=== PATIENT | female | born 1975 | race Caucasian/White ===

== ENCOUNTER → 2017-08-14 09:42 | Outpatient (CLI) | payer OTHER, SELFPAY ==
--- NOTE | 2017-08-14 09:43 | DI.US.S_ITS ---
PROCEDURE: US THYROID INDICATIONS: hx of thyroid cysts TECHNIQUE: Real-time scanning was performed of the thyroid gland, with image documentation. COMPARISON: [facility], US, ASPIRATION CYST, 12/17/2012, 15:03. [facility], US, ASPIRATION CYST, 11/28/2012, 14:53. [facility], US, THYROID, 11/25/2012, 14:41. FINDINGS: Right: Thyroid lobe measures 5.2 x 1.5 x 1.8 cm, and is homogeneous in echotexture. Left: Thyroid lobe measures 3.4 x 1.0 x 0.7 cm, and is homogenous in echotexture. Isthmus: 2.0 mm thick. Nodule number: 1 Location: Right mid Size: 1.2 x 0.6 x 0.7 cm. Composition: Predominantly solid Echogenicity: Hypoechoic Shape: wider than tall. Margins: Smooth Echogenic foci: None Total points: 4 ACR TI-RADS category: Moderately suspicious Nodule number: 2 Location: Right inferior Size: measuring 1.7 x 1.2 x 3.5 cm Composition: Predominantly solid Echogenicity: Hypoechoic Shape: wider than tall. Margins: Smooth Echogenic foci: Internal echogenic punctate foci. Total points: 7 ACR TI-RADS category: Highly suspicious IMPRESSION: Highly suspicious right inferior solid thyroid nodule based on TI RADS characterization. Sonographically directed fine needle aspiration is recommended. ACR TI-RADS definitions and recommendations: TI-RADS 1 (benign): 0 points. FNA not needed. TI-RADS 2 (not suspicious): 2 points. FNA not needed. TI-RADS 3 (mildly suspicious): 3 points. * FNA if 2.5 cm or larger, follow up if 1.5 cm or larger (at 1, 3, and 5 years). TI-RADS 4 (moderately suspicious): 4-6 points. * FNA if 1.5 cm or larger, follow up if 1 cm or larger (at 1, 2, 3, and 5 years). TI-RADS 5 (highly suspicious): 7 points or more. * FNA if 1 cm or larger, follow up if 0.5 cm or larger (every year for 5 years). Dictated by: Luis Felipe CLEMENTS Interpreted: Edward Carr MD on 08/14/2017 at 11:33 Approved by: Edward Carr M.D. on 08/14/2017 at 16:43
== END ==
PROVIDERS: PCP Family Medicine; Visit Provider Family Medicine
DX: E04.1 Nontoxic single thyroid nodule (principal)
CPT/HCPCS: 76536

== ENCOUNTER → 2017-08-30 14:12 | Outpatient (CLI) | payer OTHER, SELFPAY ==
--- NOTE | 2017-08-30 | PATH_ITS ---
Note [facility] Accession Number: [id number] TESTS RESULT FLAG UNITS REF RANGE LAB Clinician Provided Cytology Information No. of containers..01 ThinPrep Vial No. of containers..10 Previously Prepared Cytology Slide RIGHT THYROID NODULE DIAGNOSIS: RIGHT THYROID NODULE INCONCLUSIVE. [place] CATEGORY III. ATYPIA OF UNDETERMINED SIGNIFICANCE. SOME FOLLICULAR CELLS SHOW CYTOLOGIC AND ARCHITECTURAL ATYPIA. A REPEAT ASPIRATE AFTER AN APPROPRIATE INTERVAL OF OBSERVATION MIGHT BE HELPFUL, IF CLINICALLY INDICATED. Pathologist ICD10: 02 R89.6 Ashleigh Rubio MD, Pathologist NPI- [id number] Joshua Haider, Chief Mate ([facility]) 01 30 CC, PINK, CLEAR RECEIVED: 5 ALCOHOL FIXED AND 5 QUICK STAINED SLIDES. /VDU FLAG LEGEND: L-Low Normal,H-High Normal,LL-Alert Low,HH-Alert High <-Panic Low,>-Panic High,A-Abnormal,AA-Critical Abnormal Performed at: 01 =Z [facility] [address], [place] [address] Junior Andrade MD, 02 [facility] [address] [place] [phone] Baldo Chaudhari MD, Performed at: 01 [facility] [address], [place], [place] [id number] MD Junior Andrade MD Phone: [phone]
--- NOTE | 2017-08-30 14:14 | DI.US.S_ITS ---
PROCEDURE: US FINE NEEDLE ASPIRATION INDICATIONS: 42 year-old female with new dominant inferior right thyroid nodule. TECHNIQUE: The indications, alternatives, benefits, risks, and complications of the procedure were explained to the patient. Written informed consent was obtained and placed in the chart. The thyroid region was examined sonographically and a site was chosen for ultrasound guided percutaneous sampling. The skin was prepared and draped in the usual fashion, and anesthetized with 1% lidocaine infiltrated from the skin down to the thyroid gland. Multiple passes were then performed, with contents emptied into an appropriate pathology specimen container. A bandage was applied to the area of access at completion of the study. COMPARISON: [facility], US, ASPIRATION CYST, 12/17/2012, 15:03. [facility], US, ASPIRATION CYST, 11/28/2012, 14:53. [facility], US, THYROID, 11/25/2012, 14:41. [facility], US, US THYROID, 08/14/2017, 9:53. FINDINGS: Location(s) of lesion(s) sampled: Right mid and inferior thyroid lobe. [place]: 25 gauge and 22 gauge hypodermic needles. Number of passes: 6 total. Medications: 1% lidocaine for local anaesthesia. Complications: None. IMPRESSION: Successful ultrasound-guided thyroid nodule fine needle aspiration, with cytology results pending. Please see chart below for management recommendations based on cytology results. [facility] ReportingRecommendationsNon-diagnostic* Repeat US-guided FNA, with on-site cytology evaluation if possible. * Repeated non-diagnostic nodules without high suspicion US features: close observation vs surgical consult. * Consider surgery if nodule has high suspicion US features, grows >20% in 2 dimensions on followup, or patient has clinical risk factors for malignancy. Benign* If nodule has high suspicion US features: repeat US and FNA within 12 months. * If nodule has low to intermediate suspicion US features: repeat US at 12-24 months. If nodule grows (20% increase in at least 2 dimensions, with minimal increase of 2 mm or >50% change in volume), or development of new suspicious US features, then repeat FNA or continue followup. * If nodule has very low suspicion US features: followup US at >24 months. Atypia of undetermined significance, follicular lesion of undetermined significanceRepeat FNA, molecular testing, followup US, or surgical consult.Follicular neoplasm, suspicious for follicular neoplasmSurgical consult; also consider molecular testing. Suspicious for malignancySurgical consult.MalignantSurgical consult. Dictated by: Ronan Hayward M.D. on 08/30/2017 at 15:56 Approved by: Ronan Hayward M.D. on 08/30/2017 at 15:58
== END ==
PROVIDERS: PCP Family Medicine; Visit Provider Family Medicine
DX: E04.1 Nontoxic single thyroid nodule (principal)
CPT/HCPCS: 10022; 76942

== ENCOUNTER → 2017-09-19 10:07 | Outpatient (CLI) | payer OTHER, SELFPAY ==
[2017-09-19 11:04] LABS: Erythrocyte Sedimentation Rate 21 MM/HR (0-20)
[2017-09-19 11:24] LABS: C-Reactive Protein Quant 1.5 mg/dL (<1.0)
[2017-09-19 11:27] LABS: Rheumatoid Factor < 8.6 IU/mL (<12.0)
== END ==
PROVIDERS: PCP Family Medicine; Visit Provider Physician Assistant
DX: M25.50 Pain in unspecified joint (principal)
CPT/HCPCS: 36415; 85651; 86140; 86430

== ENCOUNTER → 2017-10-04 15:51 | Outpatient (CLI) | payer OTHER, SELFPAY ==
[2017-10-04 18:33] LABS: Thyroid Stimulating Hormone 1.51 uIU/mL (0.47-4.68)
[2017-10-08 12:09] LABS: CCP Antibody (IgG) < 16 Units (< 20)
[2017-10-08 14:53] LABS: Thyroid Peroxidase Antibodies < 1 IU/mL (< 9)
[2017-10-09 19:37] LABS: ANA Pattern Homogeneous; ANA Screen, IFA Positive (Negative)
== END ==
PROVIDERS: PCP Family Medicine; Visit Provider Family Medicine
DX: E04.1 Nontoxic single thyroid nodule (principal); E05.90 Thyrotoxicosis, unspecified without thyrotoxic crisis or storm; M06.9 Rheumatoid arthritis, unspecified
CPT/HCPCS: 36415; 83516; 84439; 84443; 84481; 86038; 86376

== ENCOUNTER → 2017-11-01 10:36 | Outpatient (CLI) | payer OTHER, SELFPAY ==
[2017-11-06 07:55] LABS: ANA Screen NEGATIVE (Negative); DNA Antibody Crithidia IFA NEGATIVE (Negative); Rheumatoid Factor <14 IU/mL; Sjogren Antiboday SS-A <1.0 NEG AI (<1.0 NEGATIVE); Sjogren Antiboday SS-B <1.0 NEG AI (<1.0 NEGATIVE); Sm Antibody <1.0 NEG AI (<1.0 NEGATIVE); Sm/RNP Antibody <1.0 NEG AI (<1.0 NEGATIVE)
== END ==
PROVIDERS: PCP Family Medicine; Visit Provider Family Medicine
DX: R76.8 Other specified abnormal immunological findings in serum (principal); N64.4 Mastodynia
CPT/HCPCS: 36415; 86038; 86430

== ENCOUNTER → 2018-02-24 14:44 | Outpatient (CLI) | payer OTHER, SELFPAY ==
--- NOTE | 2018-02-24 | DI.US.S_ITS ---
PROCEDURE: US THYROID INDICATIONS: FOLLOW-UP NODULES TECHNIQUE: Real-time scanning was performed of the thyroid gland, with image documentation. COMPARISON: [facility], US, US FINE NEEDLE ASPIRATION, 08/30/2017, 14:40. [facility], US, US THYROID, 08/14/2017, 9:53. FINDINGS: Right: Thyroid lobe measures 5.4 x 1.6 x 2.0 cm, and is homogeneous in echotexture. Left: Thyroid lobe measures 3.1 x 1.0 x 0.8 cm, and is homogenous in echotexture. Isthmus: 2.8 mm thick. Nodule number: 1 Location: Right mid Size: Unchanged at 1.3 x 0.5 x 0.9 cm. Composition: Solid Echogenicity: Hypoechoic Shape: wider than tall. Margins: Smooth Echogenic foci: None Total points: 4 ACR TI-RADS category: Moderately suspicious Nodule number: 2 Location: Right inferior Size: Unchanged at 1.6 x 2.0 x 3.0 cm. Composition: Solid Echogenicity: Hypoechoic Shape: wider than tall. Margins: Smooth Echogenic foci: Internal echogenic punctate foci Total points: 7 ACR TI-RADS category: Highly suspicious IMPRESSION: Stable appearance of bilateral thyroid nodules compared to prior examination. Recommend correlation with pathology report from prior fine-needle aspiration dated 08/30/2017 and if indicated, repeat fine needle aspiration of the highly suspicious nodule could be performed. ACR TI-RADS definitions and recommendations: TI-RADS 1 (benign): 0 points. FNA not needed. TI-RADS 2 (not suspicious): 2 points. FNA not needed. TI-RADS 3 (mildly suspicious): 3 points. * FNA if 2.5 cm or larger, follow up if 1.5 cm or larger (at 1, 3, and 5 years). TI-RADS 4 (moderately suspicious): 4-6 points. * FNA if 1.5 cm or larger, follow up if 1 cm or larger (at 1, 2, 3, and 5 years). TI-RADS 5 (highly suspicious): 7 points or more. * FNA if 1 cm or larger, follow up if 0.5 cm or larger (every year for 5 years). Dictated by: Luis Felipe CLEMENTS Interpreted: Kirstei Christy MD on 02/24/2018 at 15:44 Approved by: Kirstie Christy MD, PhD on 02/24/2018 at 17:18
== END ==
PROVIDERS: PCP Family Medicine; Visit Provider Family Medicine
DX: E04.2 Nontoxic multinodular goiter (principal)
CPT/HCPCS: 76536

== ENCOUNTER → 2019-07-13 07:15 | Outpatient (CLI) | payer OTHER, SELFPAY ==
--- NOTE | 2019-07-13 07:17 | DI.US.S_ITS ---
PROCEDURE: US PELVIC COMPLETE INDICATIONS: PAIN TECHNIQUE: Real-time scanning was performed of the pelvic organs, with image documentation. Additional endovaginal scanning was necessary due to incomplete visualization of the adnexal and endometrial structures by transabdominal scanning. COMPARISON: None. FINDINGS: Transabdominal scanning: Limited scanning through the kidneys shows no hydronephrosis. No pathologic free abdominal or pelvic fluid. Endovaginal scanning: Uterus: Uterus is normal in size at 11.2 x 4.5 x 6.1 cm. The endometrium measures 16 mm in combined thickness. Ovaries: The right ovary measures 3.3 x 3.1 x 3.0 cm. There is a 2.7 cm simple right ovarian cyst. Left ovary measures 2.1 x 1.1 x 2.4 cm. No suspicious solid ovarian/adnexal mass lesions. Vascular waveforms are noted bilaterally. IMPRESSION: Pelvis without acute sonographic abnormalities. No suspicious ovarian/adnexal mass lesions. Dictated by: Josh Marroquin M.D. on 07/13/2019 at 9:03 Approved by: Josh Marroquin M.D. on 07/13/2019 at 9:05
== END ==
PROVIDERS: PCP Family Medicine; Referring Provider Physician Assistant; Visit Provider Physician Assistant
DX: R10.2 Pelvic and perineal pain (principal); N83.291 Other ovarian cyst, right side; Z87.42 Personal history of other diseases of the female genital tract
CPT/HCPCS: 76830; 76856

== ENCOUNTER → 2019-08-26 08:44 | Outpatient (CLI) | payer OTHER, SELFPAY ==
--- NOTE | 2019-08-26 | DI.MG.S_ITS ---
BILATERAL DIGITAL SCREENING MAMMOGRAM 3D/2D WITH CAD: 08/26/2019 CLINICAL: Routine screening. Comparison is made to exam dated: 07/31/2017 [facility]. The tissue of both breasts is heterogeneously dense. This may lower the sensitivity of mammography. Current study was also evaluated with a Computer Aided Detection (CAD) system. No significant masses, calcifications, or other findings are seen in either breast. There has been no significant interval change. IMPRESSION: NEGATIVE There is no mammographic evidence of malignancy. A 1 year screening mammogram is recommended. This exam was interpreted at Station ID: [id number]. NOTE: For mammograms, a report in lay terms will be sent to the patient. Approximately 15% of breast malignancies will not be visualized mammographically. In the management of a palpable breast mass, a negative mammogram must not discourage biopsy of a clinically suspicious lesion. Electronically Signed By: Shannan march/zeina:08/26/2019 09:45:33 letter sent: Normal Exam ACR BI-RADS Category 1: Negative [id number]
--- NOTE | 2019-08-26 08:45 | DI.US.S_ITS ---
PROCEDURE: US THYROID INDICATIONS: NODULES TECHNIQUE: Real-time scanning was performed of the thyroid gland, with image documentation. COMPARISON: [facility], US, US THYROID, 02/24/2018, 14:59. FINDINGS: Right: Thyroid lobe measures 6.0 x 1.6 x 2.2 cm, and is homogeneous in echotexture. Left: Thyroid lobe measures 2.9 x 1.2 x 0.6 cm, and is homogenous in echotexture. Isthmus: 2.0 mm thick. Nodule number: 1 Location: Right mid Size: Unchanged at 1.4 x 0.6 x 1.1 cm. Composition: Solid Echogenicity: Hypoechoic Shape: wider than tall. Margins: Smooth Echogenic foci: None Total points: 4 ACR TI-RADS category: Moderately suspicious Nodule number: 2 Location: Right inferior Size: Increased at 3.0 x 1.6 x 2.1 cm Composition: Solid Echogenicity: Hypoechoic Shape: wider than tall. Margins: Smooth Echogenic foci: None Total points: 4 ACR TI-RADS category: Moderately suspicious IMPRESSION: Increase in size of the right inferior 2 thyroid nodule which is moderately suspicious. Recommend sonographically directed fine needle aspiration for pathologic diagnosis. ACR TI-RADS definitions and recommendations: TI-RADS 1 (benign): 0 points. FNA not needed. TI-RADS 2 (not suspicious): 2 points. FNA not needed. TI-RADS 3 (mildly suspicious): 3 points. * FNA if 2.5 cm or larger, follow up if 1.5 cm or larger (at 1, 3, and 5 years). TI-RADS 4 (moderately suspicious): 4-6 points. * FNA if 1.5 cm or larger, follow up if 1 cm or larger (at 1, 2, 3, and 5 years). TI-RADS 5 (highly suspicious): 7 points or more. * FNA if 1 cm or larger, follow up if 0.5 cm or larger (every year for 5 years). Dictated by: Luis Felipe CLEMENTS Interpreted: Re De Luna MD on 08/26/2019 at 10:18 Approved by: Re De Luna M.D. on 08/28/2019 at 16:52
[2019-08-26 10:14] LABS: Add Manual Diff / Slide Review NO; Basophils Absolute Auto 0 /uL (0-100); Basophils Percent Auto 0.5 % (0-2); Eosinophils Absolute Auto 0 /uL (0-450); Eosinophils Percent Auto 0.6 % (2-4); Hematocrit 37.8 % (36-46); Lymphocytes Absolute Auto 1800 /uL (1100-4500); Lymphocytes Percent Auto 31.4 % (25-40); Mean Corpuscular HGB Conc 34.5 % (30-36); Monocytes Absolute Auto 700 /uL (0-900); Monocytes Percent Auto 11.6 % (3-14); Neutrophils Absolute Auto 3200 /uL (1500-7000); Neutrophils Percent Auto 55.9 % (50-75); Platelet Count 304 X10^3/uL (150-400); Red Blood Cell Count 4.35 X10^6/uL (4.0-5.2); White Blood Cell Count 5.7 X10^3/uL (4.5-11.0)
[2019-08-26 10:26] LABS: Alanine Aminotransferase 18 IU/L (<35); Albumin 4.3 g/dL (3.5-5.0); Albumin Globulin Ratio 1.3 (1.0-2.8); Alkaline Phosphatase 60 U/L (38-126); Aspartate Aminotransferase 19 IU/L (14-36); BUN Creatinine Ratio 17.6 (6-22); Bilirubin Total 0.4 mg/dL (0.2-1.3); Blood Urea Nitrogen 12 mg/dL (7-17); Calcium 9.6 mg/dL (8.4-10.2); Carbon Dioxide 26 mmol/L (22-32); Chloride 107 mmol/L (98-107); Cholesterol 150 mg/dL (140-199); Estimated Glomerular Filt Rate > 60.0 mL/min (>60); Globulin 3.2 g/dL (1.7-4.1); Glucose 88 mg/dL (70-100); HDL Cholesterol 70 mg/dL (40-60); HEMOLYSIS < 15 (0-50); LDL Cholesterol Calculated 65 mg/dL (<100); Sodium 139 mmol/L (137-145); Total Protein 7.5 g/dL (6.3-8.2); Triglycerides 76 mg/dL (35-150)
[2019-08-26 10:27] LABS: C-Reactive Protein Quant < 0.5 mg/dL (<1.0)
[2019-08-26 10:38] LABS: Erythrocyte Sedimentation Rate 13 MM/HR (0-20)
[2019-08-26 10:46] LABS: Free T3, Triiodothyronine Free 3.59 pg/mL (2.77-5.27); Free T4, Direct Thyroxine 0.96 ng/dL (0.78-2.19)
[2019-08-26 11:00] LABS: Thyroid Stimulating Hormone 0.05 uIU/mL (0.47-4.68)
[2019-08-27 08:17] LABS: Thyroid Peroxidase Antibodies 10 IU/mL (0-34)
[2019-08-27 17:09] LABS: Anti Thyroglobulin Antibody <1.0 IU/mL (0.0-0.9)
[2019-08-28 16:38] LABS: ANA Screen, IFA Positive (.)
[2019-08-31 14:08] LABS: Triiodothyronine T3 Reverse 14.7 ng/dL (9.2-24.1)
== END ==
PROVIDERS: PCP Family Medicine; Referring Provider Family Medicine; Visit Provider Family Medicine
DX: Z12.31 Encounter for screening mammogram for malignant neoplasm of breast (principal); E04.2 Nontoxic multinodular goiter; E05.90 Thyrotoxicosis, unspecified without thyrotoxic crisis or storm; R53.83 Other fatigue
CPT/HCPCS: 36415; 76536; 77063; 77067; 80053; 80061; 84439; 84443; 84481; 84482; 85025; 85651; 86038; 86140; 86376; 86800

== ENCOUNTER → 2019-11-14 11:38 | Outpatient (CLI) | payer OTHER, SELFPAY | PROVIDERS: Family Provider Family Medicine; PCP Family Medicine; Visit Provider Physician Assistant | DX: R35.0 Frequency of micturition (principal) | CPT/HCPCS: 87086 ==

== ENCOUNTER → 2021-05-02 16:37 | Outpatient (CLI) | payer OTHER, SELFPAY ==
--- NOTE | 2021-05-02 | DI.MG.S_ITS ---
BILATERAL DIGITAL SCREENING MAMMOGRAM 3D/2D WITH CAD: 05/02/2021 CLINICAL: Routine screening. Family history of breast cancer. Comparison is made to exams dated: 08/26/2019 mammogram and 07/31/2017 mammogram - [facility]. The tissue of both breasts is heterogeneously dense. This may lower the sensitivity of mammography. Current study was also evaluated with a Computer Aided Detection (CAD) system. No significant masses, calcifications, or other findings are seen in either breast. There has been no significant interval change. IMPRESSION: NEGATIVE There is no mammographic evidence of malignancy. A 1 year screening mammogram is recommended. This exam was interpreted at Station ID: [id number]. NOTE: For mammograms, a report in lay terms will be sent to the patient. Approximately 15% of breast malignancies will not be visualized mammographically. In the management of a palpable breast mass, a negative mammogram must not discourage biopsy of a clinically suspicious lesion. Electronically Signed By: Constance kc/zeina:05/02/2021 17:26:59 letter sent: Normal Exam ACR BI-RADS Category 1: Negative 3341F
== END ==
PROVIDERS: Family Provider Family Medicine; PCP Family Medicine; Referring Provider Family Medicine; Visit Provider Family Medicine
DX: Z12.31 Encounter for screening mammogram for malignant neoplasm of breast (principal); Z80.3 Family history of malignant neoplasm of breast
CPT/HCPCS: 77063; 77067

== ENCOUNTER → 2021-06-22 10:19 | Outpatient (CLI) | payer OTHER, SELFPAY ==
--- NOTE | 2021-06-22 10:21 | DI.RAD.S_ITS ---
PROCEDURE: XR SHOULDER RT MIN 2V INDICATIONS: lipoma on right shoulder TECHNIQUE: 3 views of the shoulder were acquired. COMPARISON: None. FINDINGS: Bones: No fractures or dislocations. No suspicious bony lesions. Visualized ribs appear intact. Soft tissues: There is fat density bulging of the right shoulder in the area of abnormality. IMPRESSION: Fat density bulging of the right shoulder suspicious for lipoma. Recommend ultrasound. No osseous abnormality. Dictated by: Tam Angelo M.D. on 06/22/2021 at 13:10 Approved by: Tam Angelo M.D. on 06/22/2021 at 13:11
== END ==
PROVIDERS: Family Provider Family Medicine; Referring Provider Family Medicine; Visit Provider Family Medicine
DX: D17.21 Benign lipomatous neoplasm of skin and subcutaneous tissue of right arm (principal)
CPT/HCPCS: 73030

== ENCOUNTER → 2021-09-23 18:01 | Outpatient (CLI) | payer OTHER, SELFPAY ==
[2021-09-23 20:58] LABS: Urine N gonorrhoeae NOT DETECTED
[2021-09-23 21:12] LABS: Urine Chlamydia NOT DETECTED
== END ==
PROVIDERS: Family Provider Family Medicine; Visit Provider Physician Assistant
DX: N89.8 Other specified noninflammatory disorders of vagina (principal)
CPT/HCPCS: 87210; 87491; 87591

== ENCOUNTER 2022-08-27 10:41 | Emergency (ER) | payer OTHER, SELFPAY ==
[2022-08-27 11:09] VITALS: BP 131/64; PULSE 97; RESP 16; TEMP 36.4; O2SAT 97; BMI 23.6
[2022-08-27 11:38] LABS: Add Manual Diff / Slide Review NO; Basophils Absolute Auto 0 /uL (0-100); Basophils Percent Auto 0.4 % (0-2); Eosinophils Absolute Auto 0 /uL (0-450); Eosinophils Percent Auto 0.4 % (2-4); Hemoglobin 13.6 g/dL (12.0-16.0); Lymphocytes Absolute Auto 2000 /uL (1100-4500); Mean Corpuscular HGB Conc 34.1 % (30-36); Mean Corpuscular Hemoglobin 30.9 PG (26-34); Mean Corpuscular Volume 90.4 fL (80-100); Monocytes Absolute Auto 600 /uL (0-900); Monocytes Percent Auto 7.5 % (3-14); Neutrophils Absolute Auto 5400 /uL (1500-7000); Neutrophils Percent Auto 66.7 % (50-75); Platelet Count 370 X10^3/uL (150-400); Red Blood Cell Count 4.42 X10^6/uL (4.0-5.2); Red Cell Distribution Width 12.8 % (11.6-14.8); White Blood Cell Count 8.1 X10^3/uL (4.5-11.0)
[2022-08-27 11:56] LABS: Alanine Aminotransferase 27 IU/L (<35); Albumin 4.1 g/dL (3.5-5.0); Albumin Globulin Ratio 1.3 (1.0-2.8); Alkaline Phosphatase 75 U/L (38-126); Aspartate Aminotransferase 23 IU/L (14-36); BUN Creatinine Ratio 21.2 (6-22); Bilirubin Total 0.4 mg/dL (0.2-1.3); Blood Urea Nitrogen 14 mg/dL (7-17); Calcium 8.9 mg/dL (8.4-10.2); Carbon Dioxide 29 mmol/L (22-32); Chloride 106 mmol/L (98-107); Estimated Glomerular Filt Rate > 60 mL/min (>60); Globulin 3.1 g/dL (1.7-4.1); Glucose 109 mg/dL (70-100); HEMOLYSIS < 15 (0-50); Lipase 83 U/L (23-300); Potassium 3.8 mmol/L (3.4-5.1); Sodium 140 mmol/L (137-145); Total Protein 7.2 g/dL (6.3-8.2)
[2022-08-27 13:43] VITALS: PULSE 76; O2SAT 98
[2022-08-27 13:44] VITALS: BP 134/63; PULSE 77; O2SAT 99
[2022-08-27 14:00] VITALS: BP 110/65; PULSE 72; O2SAT 99
--- NOTE | 2022-08-27 14:23 | ED_ITS ---
HPI - Abdominal Pain General Chief Complaint: Abdominal Pain Stated Complaint: pain in lower groin. radiating to back Time Seen by Provider: 08/27/22 14:23 Source: patient Mode of arrival: Ambulatory History of Present Illness HPI narrative: Patient 47-year-old female without significant past medical history presenting today with right flank pain radiating to her abdomen with some cramping and constipation. She reports that a few weeks ago she definitely pulled her right groin she rested it however when she started going back to gym started hurting again. However over the past couple days she has this flank pain and cramping in her abdomen. No significant radiation down her leg no nausea vomiting no painful frequent urination no other symptoms. Related Data Home Medications Medication Instructions Recorded Confirmed MULTIVITAMIN 1 tab PO QDAY ##0 08/23/16 05/04/22 loratadine 10 mg tablet (Claritin) 10 mg PO DAILY 08/04/17 05/04/22 Previous Rx's Medication Instructions Recorded fluticasone propionate 50 2 spray intranasal QDAYP PRN nasal 10/23/17 mcg/actuation nasal congestion ##16 spray,suspension drospirenone 3 mg-ethinyl 1 tab PO DAILY #84 tabs 12/16/19 estradiol 0.03 mg tablet bupropion HCl 150 mg 24 hr tablet, See Rx Instructions .Route 09/26/20 extended release .COMPLEX #30 tabs fluconazole 150 mg tablet 150 mg PO Q3D 2 doses #2 tabs 05/04/22 Allergies Allergy/AdvReac Type Severity Reaction Status Date / Time No Known Drug Allergies Allergy Verified 08/27/22 11:09 Review of Systems Review of Systems ROS Unobtainable: All systems reviewed & are unremarkable except as noted in HPI and below Patient History Medical History Anxiety Bipolar disorder Chronic back pain (~2004) Depression History of frequent headaches (~1990) Hyperthyroidism Ovarian cyst (~1992) depression (09/30/14) Seasonal allergies Thyroid nodule (~2012) Urinary frequency Surgical History Anesthesia History of thyroid surgery (~2012) Status post delivery (~2009) Status post delivery (~2014) Status post colonoscopy (02/16/15) Status post ovarian cystectomy Family History Grandfather Cancer Sister Age: 60 Colon cancer Social History Smoking Status: Former smoker alcohol intake: current Smoking Status: Former smoker alcohol intake frequency: a few times a week Substance Use Type: marijuana Exam Initial Vital Signs Initial Vital Signs: Vital Signs Temperature 97.6 F 08/27/22 11:09 Pulse Rate 97 H 08/27/22 11:09 Respiratory Rate 16 08/27/22 11:09 Blood Pressure 131/64 08/27/22 11:09 Pulse Oximetry 97 08/27/22 11:09 Oxygen Delivery Method Room Air 08/27/22 11:09 GENERAL: Alert pleasant 47-year-old female and in no acute distress. HEENT: Head atraumatic,EOMI, pupils reactive, face symmetric, moist mucous membranes CARDIOVASCULAR: Regular rate and rhythm without murmurs, rubs or gallops. RESPIRATORY: Breath sounds equal bilaterally, no wheezes rales or rhonchi. ABDOMEN: Soft, nontender. Normoactive bowel sounds all 4 quadrants. No guarding or rebound. : Minimal CVA tenderness EXTREMITIES: Normal range of motion, no clubbing or edema. Neurovascularly intact NEUROLOGICAL: Alert and oriented x4.Normal gait and speech. SKIN: Warm, dry, no laceration, no petechiae, no rashes or lesions. Course Orders Ordered: ED Orders 08/27/22 11:15 Complete Blood Count AUTO DIFF Stat Comprehensive Metabolic Panel Stat Lipase Stat EKG-12 Lead Stat 08/27/22 15:39 CT kidney ureter bladder (KUB) Stat Discontinued Medications Ondansetron HCl (Ondansetron 4 Mg Odt) 4 mg PO NOW PRN PRN Reason: Nausea And Vomiting Ondansetron HCl (Ondansetron 4 Mg/2 Ml Inj) 4 mg IV NOW PRN PRN Reason: Nausea And Vomiting Vital Signs Vital signs: Vital Signs - 8 hr 08/27/22 13:43 08/27/22 13:44 08/27/22 13:44 Pulse Rate 76 77 Respiratory Rate Blood Pressure 134/63 Pulse Oximetry 98 99 Oxygen Delivery Method 08/27/22 14:00 08/27/22 14:00 08/27/22 14:30 Pulse Rate 72 Respiratory Rate Blood Pressure 110/65 112/78 Pulse Oximetry 99 Oxygen Delivery Method 08/27/22 14:30 08/27/22 17:12 Pulse Rate 76 87 Respiratory Rate 12 Blood Pressure 132/71 Pulse Oximetry 99 98 Oxygen Delivery Method Room Air MDM - Abdominal Pain Lab Data 08/27/22 11:15 08/27/22 11:15 Labs: Lab Results 08/27/22 08/27/22 Range/Units 11:15 11:15 WBC 8.1 (4.5-11.0) X10^3/uL RBC 4.42 (4.0-5.2) X10^6/uL Hgb 13.6 (12.0-16.0) g/dL Hct 40.0 (36-46) % MCV 90.4 (80-100) fL MCH 30.9 (26-34) PG MCHC 34.1 (30-36) % RDW 12.8 (11.6-14.8) % Plt Count 370 (150-400) X10^3/uL Neut % (Auto) 66.7 (50-75) % Lymph % (Auto) 25.0 (25-40) % [place] % (Auto) 7.5 (3-14) % Eos % (Auto) 0.4 L (2-4) % Baso % (Auto) 0.4 (0-2) % Neut # (Auto) 5400 (7019-2974) /uL Lymph # (Auto) 2000 (1535-4042) /uL [place] # (Auto) 600 (0-900) /uL Eos # (Auto) 0 (0-450) /uL Baso # (Auto) 0 (0-100) /uL Sodium 140 (137-145) mmol/L Potassium 3.8 (3.4-5.1) mmol/L Chloride 106 (98-107) mmol/L Carbon Dioxide 29 (22-32) mmol/L BUN 14 (7-17) mg/dL Creatinine 0.66 (0.52-1.04) mg/dL Estimated GFR > 60 (>60) mL/min BUN/Creatinine Ratio 21.2 (6-22) Glucose 109 H (70-100) mg/dL Calcium 8.9 (8.4-10.2) mg/dL Total Bilirubin 0.4 (0.2-1.3) mg/dL AST 23 (14-36) IU/L ALT 27 (<35) IU/L Alkaline Phosphatase 75 (38-126) U/L Total Protein 7.2 (6.3-8.2) g/dL Albumin 4.1 (3.5-5.0) g/dL Globulin 3.1 (1.7-4.1) g/dL Albumin/Globulin Ratio 1.3 (1.0-2.8) Lipase 83 (23-300) U/L Point of care testing: Point of Care Testing Test Results Negative Urine Dip Bedside Urine Glucose Negative Bedside Urine Bilirubin - Negative Bedside Urine Ketone - Negative Urine Specific [place] 1.030 Bedside Urine Occult Blood - Negative Bedside Urine pH 6 Bedside Urine Protein - Negative Bedside Urine Urobilinogen - Negative Bedside Urine Nitrite - Negative Bedside Urine Leukocytes - Negative Esterase Imaging Data CT scan - abdomen/pelvis: Radiologist's Impression: PROCEDURE:? CT KIDNEY URETER BLADDER (KUB) ? INDICATIONS:? right flank pain ? TECHNIQUE:? Axial sections were acquired from the lung bases to the pubic symphysis.? Coron al and sagittal reformats were performed.? For radiation dose reduction, the following was used: ?automated exposure control, adjustment of mA and/or kV according to patient size.? ? COMPARISON:? None. ? FINDINGS: ? Lower thorax: The lung bases are clear.? Heart size normal.? No hiatal hernia. ? Liver:? Normal in size and attenuation. No contour deformity present. ? Biliary system:? No calcified cholelithiasis or pericholecystic inflammation.? No intra or extrahepatic bile duct dilatation. ? Pancreas:? Unremarkable without mass or inflammation evident. ? Spleen:? Normal in size and density. ? Adrenals:? Normal morphology and density. ? Reproductive system:? Unremarkable as visualized. ? Urinary system:? Normal renal size and attenuation. No renal calculi, hydrone phrosis, or solid mass present.? Urinary bladder unremarkable. ? Gastrointestinal system:? The bowel is unremarkable without evidence of bowel obstruction or inflammation. The stomach appears unremarkable.? Several diverticula arise from the colon without evidence diverticulitis. ? Appendix:? No findings to suggest acute appendicitis. ? Peritoneal spaces:? No mesenteric or retroperitoneal adenopathy.? No free air.? No free fluid.? ? Vasculature:? The IVC, aorta and iliac vasculature are unremarkable. ? Abdominal wall:? Abdominal wall intact without evidence of ventral or inguinal hernias. ? Musculoskeletal:? Normal bone mineralization.? No acute fractures.? ? IMPRESSION: ? 1. No evidence of renal calculi or hydronephrosis bilaterally. ? 2. Colonic diverticulosis without evidence of diverticulitis ? Approved by: Chintan Restrepo M.D. on 08/27/2022 at 15:36? MDM Narrative Medical decision making narrative: Patient 47-year-old female presenting with right flank pain abdominal cramping and ongoing right groin strain. She reports that the flank pain and cramping is new. She still has pain with movement in her right groin. Blood work today is reassuring without clinical significant abnormalities, CT does not show any nephrolithiasis diverticulitis or acute appendicitis. I suspect that what she is feeling up into her right flank is likely radiation maybe from her groin strain. Urinalysis is negative she is not . Other possibility include ovarian cyst, however she does not have significant right lower quadrant pain. It is definitely over the inguinal ligament consistent with a groin strain. At this time I recommend supportive care only. Discharge Plan Departure Patient Disposition: Home Clinical Impression: Groin strain Instructions: DI for Groin Strain Activity Restrictions/Additional Instructions: *You have been diagnosed with groin strain *What to do: At this time blood work is reassuring CT does not show any evidence of kidney stone appendicitis or bowel obstruction *Continue to take medications as directed Tylenol ibuprofen as directed if needed for pain *Follow up with your primary care provider in 2-3 days or call [phone] *Return to ER if you should have increasing pain nausea vomiting numbness tingling weakness or any new, worsening or concerning symptoms Prescriptions: No Action fluconazole 150 mg tablet 150 mg PO Q3D Qty: 2 0RF Rx Instructions: may repeat second dose 72 hrs after first dose if symptoms persist loratadine [Claritin] 10 mg tablet 10 mg PO DAILY MULTIVITAMIN 1 tab PO QDAY Qty: 0 fluticasone propionate 50 mcg/actuation spray,suspension 2 spray Intranasal QDAYP PRN (Reason: nasal congestion) Qty: 16 2RF drospirenone-ethinyl estradiol 3-0.03 mg tablet 1 tab PO DAILY Qty: 84 0RF bupropion HCl 150 mg tablet extended release 24 hr See Rx Instructions .ROUTE .COMPLEX Qty: 30 0RF Dose Instruction: take 1 tablet by mouth every morning Rx Instructions: take 1 tablet by mouth every morning Referrals: Miscellaneous,Doctor, MD [Primary Care Provider] - Stand Alone Forms: Patient Portal/API
[2022-08-27 14:30] VITALS: BP 112/78; PULSE 76; O2SAT 99
--- NOTE | 2022-08-27 15:39 | DI.CT.S_ITS ---
PROCEDURE: CT KIDNEY URETER BLADDER (KUB) INDICATIONS: right flank pain TECHNIQUE: Axial sections were acquired from the lung bases to the pubic symphysis. Coronal and sagittal reformats were performed. For radiation dose reduction, the following was used: automated exposure control, adjustment of mA and/or kV according to patient size. COMPARISON: None. FINDINGS: Lower thorax: The lung bases are clear. Heart size normal. No hiatal hernia. Liver: Normal in size and attenuation. No contour deformity present. Biliary system: No calcified cholelithiasis or pericholecystic inflammation. No intra or extrahepatic bile duct dilatation. Pancreas: Unremarkable without mass or inflammation evident. Spleen: Normal in size and density. Adrenals: Normal morphology and density. Reproductive system: Unremarkable as visualized. Urinary system: Normal renal size and attenuation. No renal calculi, hydronephrosis, or solid mass present. Urinary bladder unremarkable. Gastrointestinal system: The bowel is unremarkable without evidence of bowel obstruction or inflammation. The stomach appears unremarkable. Several diverticula arise from the colon without evidence diverticulitis. Appendix: No findings to suggest acute appendicitis. Peritoneal spaces: No mesenteric or retroperitoneal adenopathy. No free air. No free fluid. Vasculature: The IVC, aorta and iliac vasculature are unremarkable. Abdominal wall: Abdominal wall intact without evidence of ventral or inguinal hernias. Musculoskeletal: Normal bone mineralization. No acute fractures. IMPRESSION: 1. No evidence of renal calculi or hydronephrosis bilaterally. 2. Colonic diverticulosis without evidence of diverticulitis Approved by: Chintan Restrepo M.D. on 08/27/2022 at 15:36
[2022-08-27 17:12] VITALS: BP 132/71; PULSE 87; RESP 12; O2SAT 98
== END 2022-08-27 17:14 | disposition home or self-care (01) ==
PROVIDERS: Emergency Provider Emergency Medicine; Family Provider Family Medicine
DX: R10.9 Unspecified abdominal pain (principal); K59.00 Constipation, unspecified
CPT/HCPCS: 36415; 74176; 80053; 81003; 81025; 83690; 85025; 99284